=== PATIENT | male | born 1945 | race Caucasian/White ===

== ENCOUNTER → 2016-11-25 | Outpatient (CLI) | payer MEDICARE, OTHER | LOC: US 08:02 | DX: Z13.6 Encounter for screening for cardiovascular disorders (principal) | CPT/HCPCS: 76706 ==

== ENCOUNTER → 2016-12-09 | Outpatient (CLI) | payer MEDICARE, OTHER | LOC: CT 07:37 | DX: Z13.6 Encounter for screening for cardiovascular disorders (principal); K55.1 Chronic vascular disorders of intestine; R16.1 Splenomegaly, not elsewhere classified | CPT/HCPCS: 74175; J7050; Q9963 ==

== ENCOUNTER → 2016-12-20 | Outpatient (CLI) | payer MEDICARE, OTHER | LOC: US 07:32 | DX: E80.6 Other disorders of bilirubin metabolism (principal); K76.89 Other specified diseases of liver; K80.20 Calculus of gallbladder without cholecystitis without obstruction | CPT/HCPCS: 76705 ==

== ENCOUNTER 2021-01-06 10:12 | Emergency (ER) | payer MEDICARE, OTHER ==
[~2021-01-06 10:12] MED LIST: ANTIVERT 12.512.5 MG PO; CARAFATE1 GM PO; CARAFATE1 GM/10 ML PO; CITALOPRAM HBR20 MG PO; COZAAR25 MG PO; ECOTRIN81 MG PO; FLOMAX0.4 MG PO; GLUCOPHAGE1000 MG PO; INVOKANA300 MG PO; JANUVIA100 MG PO; LANTUS SOL100 UNIT/1 SQ; LIPITOR40 MG PO; NITROSTAT 0.40.4 MG SL; OXYBUTYNIN CHLOR5 M1 PO; PANTOPRAZOLE SO20 MG PO; PROTONIX20 MG PO; ZOFRAN ODT 4 MG4 MG PO
[2021-01-06 11:08] LABS: HEMOGLOBIN 13.5 gm/dl (14.0-17.5); RED BLOOD COUNT 4.59 M/UL (4.20-5.50)
[2021-01-06 11:35] LABS: BUN/CREATININE RATIO 14 (0-10)
== END 2021-01-06 13:05 | disposition home or self-care (01) ==
LOC: ER1 10:12
PROVIDERS: Emergency Medicine
DX: M25.572 Pain in left ankle and joints of left foot (principal); D69.6 Thrombocytopenia, unspecified; I10 Essential (primary) hypertension; I25.10 Atherosclerotic heart disease of native coronary artery without angina pectoris; E11.9 Type 2 diabetes mellitus without complications; Z86.73 Personal history of transient ischemic attack (TIA), and cerebral infarction without residual deficits; Z95.1 Presence of aortocoronary bypass graft
CPT/HCPCS: 73610; 80048; 85025; 93971; 99284

== ENCOUNTER → 2021-01-21 | Outpatient (CLI) | payer MEDICARE, OTHER ==
[~2021-01-21] MED LIST changes: +PREDNISONE 20 M20 MG PO; +ULTRAM50 MG PO
== END ==
LOC: RAD 08:51
DX: M25.461 Effusion, right knee (principal)
CPT/HCPCS: 73564

== ENCOUNTER 2021-02-14 19:04 | Emergency (ER) | payer MEDICARE, OTHER ==
[~2021-02-14 19:04] MED LIST changes: -PREDNISONE 20 M20 MG PO; -ULTRAM50 MG PO
[2021-02-14 21:04] LABS: BUN/CREATININE RATIO 12 (0-10)
[2021-02-14 21:16] LABS: HEMOGLOBIN 13.4 gm/dl (14.0-17.5); RED BLOOD COUNT 4.54 M/UL (4.20-5.50); WHITE BLOOD COUNT 5.4 K/UL (4.5-11.0)
[2021-02-14] MEDS ORDERED: ULTRAM50 MG PO (23:01)
[2021-02-14] MEDS ORDERED: PREDNISONE 20 M20 MG PO (23:01)
== END 2021-02-14 23:20 | disposition home or self-care (01) ==
LOC: ER1 19:04
PROVIDERS: Physician Assistant
DX: M10.9 Gout, unspecified (principal); I25.10 Atherosclerotic heart disease of native coronary artery without angina pectoris; I10 Essential (primary) hypertension; F17.200 Nicotine dependence, unspecified, uncomplicated; Z86.73 Personal history of transient ischemic attack (TIA), and cerebral infarction without residual deficits; Z95.5 Presence of coronary angioplasty implant and graft
CPT/HCPCS: 73564; 80053; 83605; 84550; 85025; 85652; 86140; 87040; 99283